=== PATIENT | female | born 1980 | race Caucasian/White ===

== ENCOUNTER 2017-10-19 14:52 | Emergency (ER) | payer OTHER ==
[~2017-10-19] VITALS: Ht 157.5 cm; Wt 65.8 kg
[~2017-10-19 14:52] MED LIST: BACTRIM DS TAB1 EACH PO; NORCO 5-325 TA1 EACH PO
--- NOTE | 2017-10-20 16:21 | EKG ---
[facility] [address] [place] [address] Signed Sinus bradycardia with occasional premature ventricular complexes Cannot rule out Anterior infarct , age undetermined Abnormal ECG No previous ECGs available Confirmed by DEVANTE REGALADO MD ([id number]) on 10/20/2017 4:21:22 PM Electronically Signed By: DEVANTE REGALADO MD 10/20/17 1621 PATIENT NAME: MOIZ PILLAI Electrocardiogram DATE OF : 80 PHYSICIAN: DEVANTE REGALADO MD REPORT #: [id number] REPORT IS CONFIDENTIAL AND NOT TO BE RELEASED WITHOUT AUTHORIZATION
== END 2017-10-19 18:47 | disposition home or self-care (01) ==
LOC: ED 14:52
DX: I49.8 Other specified cardiac arrhythmias (principal)
CPT/HCPCS: 71046; 80053; 84484; 85025; 93005; 93010; 99284

== ENCOUNTER → 2018-10-03 | Emergency (ER) | payer OTHER ==
[~2018-10-03] VITALS: Ht 157.5 cm; Wt 65.8 kg
[~2018-10-03] MED LIST changes: +ACETAMINOPHEN500 MG PO
== END ==
LOC: ED 19:16
PROC: 0H97XZZ Drainage of Abdomen Skin, External Approach (ICD-10-PCS; principal; 2018-10-03)
DX: L02.211 Cutaneous abscess of abdominal wall (principal)
CPT/HCPCS: 10060; 99283-25

== ENCOUNTER 2019-09-19 18:30 | Emergency (ER) | payer OTHER ==
[~2019-09-19] VITALS: Ht 157.5 cm; Wt 70.3 kg
[2019-09-19] MEDS ORDERED: AUGMENTIN 875-1 EACH PO (20:05)
== END 2019-09-19 20:26 | disposition home or self-care (01) ==
LOC: ED 18:30
DX: S51.851A Open bite of right forearm, initial encounter (principal); S50.811A Abrasion of right forearm, initial encounter; W55.01XA Bitten by cat, initial encounter
CPT/HCPCS: 90471; 90715; 99283-25